=== PATIENT | female | born 1970 | race Caucasian/White ===

== ENCOUNTER → 2017-10-23 11:49 | Outpatient (CLI) | payer OTHER, SELFPAY ==
[2017-10-23 17:09] LABS: Urine N gonorrhoeae NOT DETECTED
[2017-10-23 17:50] LABS: Urine Chlamydia NOT DETECTED
== END ==
PROVIDERS: Visit Provider Physician Assistant
DX: N73.0 Acute parametritis and pelvic cellulitis (principal)
CPT/HCPCS: 87210; 87491; 87591

== ENCOUNTER → 2017-11-21 07:01 | Outpatient (CLI) | payer OTHER, SELFPAY ==
[2017-11-21 09:23] LABS: Alanine Aminotransferase 20 IU/L (9-52); Albumin 4.4 g/dL (3.5-5.0); Albumin Globulin Ratio 1.4 (1.0-2.8); Alkaline Phosphatase 36 U/L (38-126); Aspartate Aminotransferase 26 IU/L (14-36); BUN Creatinine Ratio 16.3 (6-22); Bilirubin Total 0.4 mg/dL (0.2-1.3); Blood Urea Nitrogen 13 mg/dL (7-17); Calcium 9.4 mg/dL (8.4-10.2); Carbon Dioxide 28 mmol/L (22-32); Chloride 105 mmol/L (98-107); Cholesterol 240 mg/dL (140-199); Estimated Glomerular Filt Rate > 60.0 mL/min (>60); Globulin 3.1 g/dL (1.7-4.1); Glucose 86 mg/dL (70-100); HDL Cholesterol 64 mg/dL (40-60); HEMOLYSIS < 15 (0-50); LDL Cholesterol Calculated 142 mg/dL (<100); Potassium 4.4 mmol/L (3.4-5.1); Sodium 143 mmol/L (137-145); Total Protein 7.5 g/dL (6.3-8.2); Triglycerides 171 mg/dL (35-150)
[2017-11-21 10:10] LABS: Thyroid Stimulating Hormone 1.22 uIU/mL (0.47-4.68)
== END ==
PROVIDERS: PCP Physician Assistant; Visit Provider Physician Assistant
DX: E78.2 Mixed hyperlipidemia (principal); Z13.29 Encounter for screening for other suspected endocrine disorder
CPT/HCPCS: 36415; 80053; 80061; 84443

== ENCOUNTER → 2018-01-11 15:07 | Outpatient (CLI) | payer OTHER, SELFPAY ==
--- NOTE | 2018-01-11 15:09 | DI.MG.S_ITS ---
BILATERAL DIGITAL SCREENING MAMMOGRAM 3D/2D WITH CAD: 01/11/2018 CLINICAL: Routine screening. Comparison is made to exams dated: 01/19/2016 mammogram, 12/25/2013 mammogram, and 01/18/2015 mammogram - [facility]. The tissue of both breasts is heterogeneously dense. This may lower the sensitivity of mammography. Current study was also evaluated with a Computer Aided Detection (CAD) system. No significant masses, calcifications, or other findings are seen in either breast. There has been no significant interval change. IMPRESSION: NEGATIVE There is no mammographic evidence of malignancy. A 1 year screening mammogram is recommended. This exam was interpreted at Station ID: [id number]. NOTE: For mammograms, a report in lay terms will be sent to the patient. Approximately 15% of breast malignancies will not be visualized mammographically. In the management of a palpable breast mass, a negative mammogram must not discourage biopsy of a clinically suspicious lesion. Electronically Signed By: Lisa erwin/amara:01/12/2018 10:02:36 letter sent: Normal Exam ACR BI-RADS Category 1: Negative 3341F
== END ==
PROVIDERS: PCP Physician Assistant; Visit Provider Physician Assistant
DX: Z12.31 Encounter for screening mammogram for malignant neoplasm of breast (principal)
CPT/HCPCS: 77063; 77067

== ENCOUNTER → 2018-11-23 08:00 | Outpatient (CLI) | payer OTHER, SELFPAY ==
[2018-11-23 09:31] LABS: Alanine Aminotransferase 20 IU/L (9-52); Albumin 4.3 g/dL (3.5-5.0); Albumin Globulin Ratio 1.4 (1.0-2.8); Alkaline Phosphatase 43 U/L (38-126); Aspartate Aminotransferase 28 IU/L (14-36); BUN Creatinine Ratio 17.1 (6-22); Bilirubin Total 0.5 mg/dL (0.2-1.3); Blood Urea Nitrogen 12 mg/dL (7-17); Calcium 9.1 mg/dL (8.4-10.2); Carbon Dioxide 27 mmol/L (22-32); Chloride 105 mmol/L (98-107); Cholesterol 261 mg/dL (140-199); Estimated Glomerular Filt Rate > 60.0 mL/min (>60); Globulin 3.1 g/dL (1.7-4.1); Glucose 90 mg/dL (70-100); HDL Cholesterol 62 mg/dL (40-60); HEMOLYSIS < 15 (0-50); LDL Cholesterol Calculated 169 mg/dL (<100); Potassium 4.5 mmol/L (3.4-5.1); Sodium 141 mmol/L (137-145); Total Protein 7.4 g/dL (6.3-8.2); Triglycerides 152 mg/dL (35-150)
[2018-11-23 10:01] LABS: Thyroid Stimulating Hormone 0.94 uIU/mL (0.47-4.68)
== END ==
PROVIDERS: PCP Physician Assistant; Visit Provider Physician Assistant
DX: E78.2 Mixed hyperlipidemia (principal); N95.1 Menopausal and female climacteric states
CPT/HCPCS: 36415; 80053; 80061; 84443

== ENCOUNTER → 2019-01-29 15:28 | Outpatient (CLI) | payer OTHER, SELFPAY ==
--- NOTE | 2019-01-29 15:30 | DI.MG.S_ITS ---
BILATERAL DIGITAL SCREENING MAMMOGRAM 3D/2D WITH CAD: 01/29/2019 CLINICAL: Routine screening. Comparison is made to exams dated: 01/11/2018 mammogram - [facility], 01/19/2016 mammogram, and 01/18/2015 mammogram - [facility]. The tissue of both breasts is heterogeneously dense. This may lower the sensitivity of mammography. Current study was also evaluated with a Computer Aided Detection (CAD) system. There is a possible developing 0.8 cm oval focal asymmetry in the left breast at 8 o'clock posterior depth. This is more prominent. No other significant masses, calcifications, or other findings are seen in either breast. IMPRESSION: INCOMPLETE: NEEDS ADDITIONAL IMAGING EVALUATION The possible developing 0.8 cm oval focal asymmetry in the left breast is indeterminate. Additional views with possible ultrasound are recommended. This exam was interpreted at Station ID: [id number]. NOTE: For mammograms, a report in lay terms will be sent to the patient. Approximately 15% of breast malignancies will not be visualized mammographically. In the management of a palpable breast mass, a negative mammogram must not discourage biopsy of a clinically suspicious lesion. Electronically Signed By: Gregory perez/amara:01/29/2019 16:41:20 letter sent: Additional Imaging Needed ACR BI-RADS Category 0: Incomplete 3340F
== END ==
PROVIDERS: PCP Physician Assistant; Visit Provider Physician Assistant
DX: Z12.31 Encounter for screening mammogram for malignant neoplasm of breast (principal)
CPT/HCPCS: 77063; 77067

== ENCOUNTER → 2019-02-20 13:38 | Outpatient (CLI) | payer OTHER, SELFPAY ==
--- NOTE | 2019-02-20 | DI.MG.S_ITS ---
UNILATERAL LEFT DIGITAL DIAGNOSTIC MAMMOGRAM 3D/2D WITH ADDITIONAL VIEWS: 02/20/2019 CLINICAL: Additional evaluation requested from prior study. Comparison is made to exams dated: 01/29/2019 mammogram, 01/11/2018 mammogram - [facility], and 01/19/2016 mammogram - [facility]. The tissue of left breast is heterogeneously dense. This may lower the sensitivity of mammography. Previously identified approximately 0.8 cm oval focal asymmetry in the medial left breast (described as being at 8 o'clock posterior depth on comparison screening mammograms of 01/29/19 but localizes closer to the 9-10 o'clock position posterior depth on diagnostic views performed today 02/20/19) persists with additional views. IMPRESSION: INCOMPLETE: NEEDS ADDITIONAL IMAGING EVALUATION Previously identified approximately 0.8 cm oval focal asymmetry in the medial left breast (described as being at 8 o'clock posterior depth on comparison screening mammograms of 01/29/19 but localizes closer to the 9-10 o'clock position posterior depth on diagnostic views performed today 02/20/19) persists with additional views. A targeted ultrasound is recommended for further evaluation, and will be performed immediately following this exam. This exam was interpreted at Station ID: [id number]. NOTE: For mammograms, a report in lay terms will be sent to the patient. Approximately 15% of breast malignancies will not be visualized mammographically. In the management of a palpable breast mass, a negative mammogram must not discourage biopsy of a clinically suspicious lesion. Electronically Signed By: Chad Self M.D. ecl/:02/20/2019 15:10:12 ACR BI-RADS Category 0: Incomplete 3340F
--- NOTE | 2019-02-20 13:39 | DI.US.S_ITS ---
LIMITED ULTRASOUND OF LEFT BREAST: 02/20/2019 CLINICAL: Additional evaluation requested from prior study. Comparison is made to exams dated: 02/20/2019 mammogram, 01/29/2019 mammogram, 01/11/2018 mammogram - [facility], 01/19/2016 mammogram, 01/18/2015 mammogram, and 12/25/2013 mammogram - [facility]. Color flow ultrasound of the left breast 7-10 o'clock region was performed. West scale images of the real-time examination were reviewed. There is a 0.9 x 0.7 x 0.4 cm oval probable cluster of microcysts located in the left breast at 9:00 position 4-5 cm from the nipple which demonstrates mild posterior acoustic enhancement/increased through transmission and no vascularity on Doppler ultrasound. This may correlate with the findings seen on comparison mammography. IMPRESSION: PROBABLY BENIGN 0.9 x 0.7 x 0.4 cm probable cluster of microcysts located in the left breast at 9:00 position 4-5 cm from the nipple. A follow-up mammogram and an ultrasound in 6 months is recommended to demonstrate stability. The patient is advised to monitor her breasts and to return sooner for re-evaluation should she feel anything grow or change. This exam was interpreted at Station ID: [id number]. Electronically Signed By: Chad Self M.D. ecl/:02/20/2019 17:08:09 letter sent: Followup Recommended Ultrasound BI-RADS: 3 Probably benign
== END ==
PROVIDERS: PCP Physician Assistant; Visit Provider Physician Assistant
DX: R92.8 Other abnormal and inconclusive findings on diagnostic imaging of breast (principal)
CPT/HCPCS: 76642; 77065; G0279

== ENCOUNTER → 2019-03-29 07:49 | Outpatient (CLI) | payer OTHER, SELFPAY ==
[2019-03-29 09:27] LABS: Cholesterol 191 mg/dL (140-199); HDL Cholesterol 61 mg/dL (40-60); LDL Cholesterol Calculated 94 mg/dL (<100); Triglycerides 178 mg/dL (35-150)
== END ==
PROVIDERS: PCP Physician Assistant; Referring Provider Physician Assistant; Visit Provider Physician Assistant
DX: E78.2 Mixed hyperlipidemia (principal)
CPT/HCPCS: 36415; 80061

== ENCOUNTER → 2019-09-11 09:04 | Outpatient (CLI) | payer OTHER, SELFPAY ==
--- NOTE | 2019-09-11 09:05 | DI.US.S_ITS ---
ULTRASOUND OF LEFT BREAST: 09/11/2019 CLINICAL: 6 month follow-up of cysts. Comparison is made to exams dated: 09/11/2019 mammogram, 02/20/2019 ultrasound, 02/20/2019 mammogram, 01/29/2019 mammogram, 01/11/2018 mammogram - [facility], and 01/19/2016 mammogram - [facility]. Ultrasound of the left breast was performed on the area of interest. West scale images of the real-time examination were reviewed. The a cluster of micro cysts in the left breast at 9 o'clock posterior depth is no longer seen. IMPRESSION: PROBABLY BENIGN The previously seen cluster of microcysts is no longer seen. This corroborates the near complete resolution of the focal asymmetry in the same region on today's mammogram. A follow-up mammogram and possible ultrasound in 6 months is recommended to demonstrate stability. This exam was interpreted at Station ID: [id number]. Electronically Signed By: Lisa Sorto M.D. lk/:09/11/2019 10:52:02 letter sent: Followup Recommended Ultrasound BI-RADS: 3 Probably benign
--- NOTE | 2019-09-11 09:05 | DI.MG.S_ITS ---
UNILATERAL LEFT DIGITAL DIAGNOSTIC MAMMOGRAM 3D/2D SHORT-TERM FOLLOW-UP: 09/11/2019 CLINICAL: Patient returns for a 6 month follow up of the left breast. Comparison is made to exams dated: 02/20/2019 mammogram, 01/29/2019 mammogram, and 01/11/2018 mammogram - [facility]. The tissue of left breast is heterogeneously dense. This may lower the sensitivity of mammography. The oval focal asymmetry in the left breast at 7 o'clock posterior depth is markedly decreased in size when compared to the 02/20/19 mammogram. No other significant masses or calcifications are seen in the breast. IMPRESSION: INCOMPLETE: NEEDS ADDITIONAL IMAGING EVALUATION The focal asymmetry in the left breast is indeterminate. An ultrasound is recommended. This exam was interpreted at Station ID: [id number]. NOTE: For mammograms, a report in lay terms will be sent to the patient. Approximately 15% of breast malignancies will not be visualized mammographically. In the management of a palpable breast mass, a negative mammogram must not discourage biopsy of a clinically suspicious lesion. Electronically Signed By: Lisa Sorto M.D. lk/:09/11/2019 10:18:41 ACR BI-RADS Category 0: Incomplete 3340F
== END ==
PROVIDERS: PCP Family Medicine; Referring Provider Family Medicine; Visit Provider Family Medicine
DX: R92.8 Other abnormal and inconclusive findings on diagnostic imaging of breast (principal); N64.89 Other specified disorders of breast
CPT/HCPCS: 76642; 77065; G0279

== ENCOUNTER → 2019-12-10 08:52 | Outpatient (CLI) | payer OTHER, SELFPAY ==
--- NOTE | 2019-12-10 08:53 | DI.RAD.S_ITS ---
PROCEDURE: XR HAND RT MIN 3V INDICATIONS: pain TECHNIQUE: 3 views of the hand(s) acquired. COMPARISON: None. FINDINGS: Bones: No acute fractures or dislocations. Chronic soft tissue calcification noted over the distal tip of the ulnar styloid process. This may represent sequela of remote trauma to the TFCC. Carpal bones are normally aligned. No suspicious bony lesions. No osseous erosions. No periarticular osteopenia. Minimal triscaphe degenerative change. Soft tissues: No suspicious soft tissue calcifications. IMPRESSION: Right hand without acute fracture. Minimal triscaphe joint osteoarthrosis. Dictated by: Gregory Pritchard M.D. on 12/10/2019 at 10:10 Approved by: Gregory Pritchard M.D. on 12/10/2019 at 10:19
--- NOTE | 2019-12-10 08:53 | DI.RAD.S_ITS ---
PROCEDURE: XR HAND LT MIN 3V INDICATIONS: pain TECHNIQUE: 3 views of the hand(s) acquired. COMPARISON: None. FINDINGS: Bones: No fractures or dislocations. Carpal bones are normally aligned. No suspicious bony lesions. No osseous erosions. No periarticular osteopenia. Soft tissues: No suspicious soft tissue calcifications. Chronic appearing soft tissue calcification overlying the distal ulnar styloid process possibly related to sequela of remote injury of the TFCC. IMPRESSION: Left hand without acute radiographic abnormalities or significant degenerative change. Dictated by: Gregory Pritchard M.D. on 12/10/2019 at 10:08 Approved by: Gregory Pritchard M.D. on 12/10/2019 at 10:10
== END ==
PROVIDERS: PCP Family Medicine; Referring Provider Family Medicine; Visit Provider Family Medicine
DX: M25.541 Pain in joints of right hand (principal); M25.542 Pain in joints of left hand
CPT/HCPCS: 73130

== ENCOUNTER → 2019-12-13 08:07 | Outpatient (CLI) | payer OTHER, SELFPAY ==
[2019-12-13 08:39] LABS: Bacteria Urine None Seen; RBC Urine None Seen (0-5/HPF); WBC Urine None Seen (0-5/HPF)
[2019-12-13 08:57] LABS: Appearance Urine UA CLEAR; Bilirubin Urine UA NEGATIVE (NEGATIVE); Color Urine UA YELLOW; Glucose Urine UA NEGATIVE (Negative); Ketones Urine UA NEGATIVE (NEGATIVE); Leukocyte Esterase Urine UA NEGATIVE (NEGATIVE); Nitrite Urine UA NEGATIVE (Negative); Occult Blood Urine UA TRACE-INTACT (Negative); Protein Urine UA NEGATIVE (Negative); Specific Gravity Urine UA 1.015 (1.000-1.035); Urobilinogen Urine UA 0.2 E.U./dL (0.2)
[2019-12-13 08:58] LABS: Add Manual Diff / Slide Review NO; Basophils Absolute Auto 0 /uL (0-100); Basophils Percent Auto 0.7 % (0-2); Eosinophils Absolute Auto 100 /uL (0-450); Eosinophils Percent Auto 1.3 % (2-4); Hemoglobin 13.4 g/dL (12.0-16.0); Lymphocytes Absolute Auto 1400 /uL (1100-4500); Mean Corpuscular HGB Conc 33.4 % (30-36); Mean Corpuscular Hemoglobin 30.8 PG (26-34); Mean Corpuscular Volume 92.2 fL (80-100); Monocytes Absolute Auto 300 /uL (0-900); Neutrophils Absolute Auto 3300 /uL (1500-7000); Platelet Count 339 X10^3/uL (150-400); Red Blood Cell Count 4.34 X10^6/uL (4.0-5.2)
[2019-12-13 09:09] LABS: BUN Creatinine Ratio 17.6 (6-22); Blood Urea Nitrogen 12 mg/dL (7-17); Carbon Dioxide 28 mmol/L (22-32); Chloride 105 mmol/L (98-107); Cholesterol 205 mg/dL (140-199); Estimated Glomerular Filt Rate > 60.0 mL/min (>60); Glucose 91 mg/dL (70-100); HDL Cholesterol 73 mg/dL (40-60); HEMOLYSIS < 15 (0-50); LDL Cholesterol Calculated 103 mg/dL (<100); Potassium 4.2 mmol/L (3.4-5.1); Sodium 138 mmol/L (137-145); Triglycerides 147 mg/dL (35-150); Uric Acid 3.7 mg/dL (2.5-6.2)
[2019-12-13 09:17] LABS: Rheumatoid Factor < 8.6 IU/mL (<12.0)
[2019-12-13 10:20] LABS: pH Urine UA 7.5 (4.5-8.0)
[2019-12-13 10:21] LABS: Culture Indicated Urine Cult Not Indicated; Urine Comments Microscopic Normal
[2019-12-15 18:34] LABS: ANA Screen, IFA Negative (.)
[2019-12-16 22:50] LABS: CCP Antibodies IgG/IgA 4 units (0-19)
== END ==
PROVIDERS: PCP Family Medicine; Referring Provider Family Medicine; Visit Provider Family Medicine
DX: E78.2 Mixed hyperlipidemia (principal); M25.541 Pain in joints of right hand; M25.542 Pain in joints of left hand
CPT/HCPCS: 36415; 80048; 80061; 81001; 84550; 85025; 86038; 86200; 86430

== ENCOUNTER → 2020-03-26 12:41 | Outpatient (CLI) | payer OTHER, SELFPAY ==
--- NOTE | 2020-03-26 12:42 | DI.MG.S_ITS ---
BILATERAL DIGITAL DIAGNOSTIC MAMMOGRAM 3D/2D SHORT-TERM FOLLOW-UP: 03/26/2020 CLINICAL: Short term follow up of the left breast, due for bilateral imaging. Comparison is made to exams dated: 09/11/2019 mammogram, 02/20/2019 mammogram, and 01/29/2019 mammogram - . The tissue of both breasts is heterogeneously dense. This may lower the sensitivity of mammography. The benign 0.8 cm focal asymmetry in the left breast at 7 o'clock posterior depth is no longer seen. No other significant masses, calcifications, or other findings are seen in either breast. IMPRESSION: BENIGN There is no mammographic evidence of malignancy. Return to annual mammogram screening schedule is recommended. This exam was interpreted at Station ID: [id number]. NOTE: For mammograms, a report in lay terms will be sent to the patient. Approximately 15% of breast malignancies will not be visualized mammographically. In the management of a palpable breast mass, a negative mammogram must not discourage biopsy of a clinically suspicious lesion. Electronically Signed By: Benji Mccall acr/:03/26/2020 14:01:46 letter sent: Normal Exam ACR BI-RADS Category 2: Benign Finding(s) 3342F
== END ==
PROVIDERS: PCP Family Medicine; Referring Provider Family Medicine; Visit Provider Family Medicine
DX: R92.8 Other abnormal and inconclusive findings on diagnostic imaging of breast (principal)
CPT/HCPCS: 77066; G0279

== ENCOUNTER → 2020-09-01 13:00 | Outpatient (CLI) | payer OTHER, SELFPAY | PROVIDERS: PCP Family Medicine; Visit Provider Physician Assistant | DX: N89.8 Other specified noninflammatory disorders of vagina (principal) | CPT/HCPCS: 87210 ==

== ENCOUNTER → 2021-03-28 10:05 | Outpatient (CLI) | payer OTHER, SELFPAY ==
--- NOTE | 2021-03-28 | DI.MG.S_ITS ---
BILATERAL DIGITAL SCREENING MAMMOGRAM 3D/2D WITH CAD: 03/28/2021 CLINICAL: Routine screening. Comparison is made to exams dated: 03/26/2020 mammogram, 01/29/2019 mammogram, 01/11/2018 mammogram, 09/11/2019 mammogram, and 02/20/2019 mammogram - [facility]. The tissue of both breasts is heterogeneously dense. This may lower the sensitivity of mammography. Current study was also evaluated with a Computer Aided Detection (CAD) system. No significant masses, calcifications, or other findings are seen in either breast. There has been no significant interval change. IMPRESSION: NEGATIVE There is no mammographic evidence of malignancy. A 1 year screening mammogram is recommended. This exam was interpreted at Station ID: [id number]. NOTE: For mammograms, a report in lay terms will be sent to the patient. Approximately 15% of breast malignancies will not be visualized mammographically. In the management of a palpable breast mass, a negative mammogram must not discourage biopsy of a clinically suspicious lesion. Electronically Signed By: Eduard mendes/aamra:03/28/2021 10:27:42 letter sent: Normal Exam ACR BI-RADS Category 1: Negative 3341F
== END ==
PROVIDERS: PCP Family Medicine; Referring Provider Family Medicine; Visit Provider Family Medicine
DX: Z12.31 Encounter for screening mammogram for malignant neoplasm of breast (principal)
CPT/HCPCS: 77063; 77067

== ENCOUNTER → 2021-05-09 08:59 | Outpatient (CLI) | payer OTHER, SELFPAY ==
[2021-05-09 11:48] LABS: COVID19 -Nasal RAPID Negative (Negative)
== END ==
PROVIDERS: PCP Family Medicine; Visit Provider Surgery
DX: Z01.812 Encounter for preprocedural laboratory examination (principal); Z20.822 Contact with and (suspected) exposure to COVID-19
CPT/HCPCS: 87635; C9803

== ENCOUNTER 2021-05-10 07:17 | Day surgery (SDC) | payer OTHER, SELFPAY ==
[2021-05-10 07:45] VITALS: BP 135/85; PULSE 85; RESP 18; TEMP 36.3; O2SAT 99; BMI 30.7
[2021-05-10] MEDS: LACTATED RINGERS 1,000 ML 200 ML IV (07:55)
--- NOTE | 2021-05-10 08:33 | P.HP_ITS ---
History of Present Illness History of Present Illness Date Patient Seen: 05/10/21 Time Patient Seen: 08:33 Chief complaint: SDC Narrative: THE PATIENT PRESENTS FOR COLORECTAL SREENING. THEY HAVE NEVER HAD ANY PREVIOUS EXAMINATION FOR SUCH. NO PERSONAL OR FAMILY HISTORY OF COLON CANCER. ON FURTHER HISTORY DENIES ANY RECENT GASTROINTESTINAL SYMPTOMS. NO NAUSEA, VOMITING, ABDOMINAL PAIN, LOSS OF APPETITE, UNEXPLAINED WEIGHT LOSS, CHANGE IN BOWEL HABITS, DIARRHEA, CONSTIPATION, MELENA, HEMATOCHEZIA, OR BRIGHT RED BLOOD PER RECTUM. Patient History Medical History Bacterial vaginosis Cardiac arrhythmia (2015) Chickenpox (1979) Chronic right hip pain Joint pain in fingers of both hands Plantar fasciitis of left foot Vertigo (2003) Weight gain finding Surgical History No history of previous surgery Family & Social History Family History Brother Age: 46 High cholesterol Father Age: 73 Heart disease High cholesterol Grandfather No problems noted. Grandmother No problems noted. Grandfather No problems noted. Grandmother No problems noted. Mother No problems noted. Social History: household members spouse Tobacco & Substance use: Smoking Status Never smoker alcohol intake current alcohol intake frequency 3 or more drinks per day Substance Use Type does not use Meds Home Medications and Allergies Home Medications Medication Instructions Recorded Confirmed Type multivitamin (Multiple Vitamins) 1 tab PO QDAY #0 02/14/17 05/10/21 History Calcium Gummies See Rx Instructions .ROUTE .COMPLEX 11/14/17 05/10/21 History Vitamin E See Rx Instructions .ROUTE .COMPLEX 10/21/18 09/23/20 History atorvastatin 20 mg tablet 20 mg PO BEDTIME #90 tab 07/13/20 05/10/21 Rx omeprazole 40 mg capsule,delayed 40 mg PO DAILY PRN #90 cap 07/13/20 05/10/21 Rx release Allergies Allergy/AdvReac Type Severity Reaction Status Date / Time No Known Allergies Allergy Uncoded 09/23/20 09:49 Exam Vital Signs (past 8 hours): - 05/10/21 07:45 Temperature 97.4 F L Pulse Rate 85 Respiratory Rate 18 Blood Pressure 135/85 Pulse Oximetry 99 Oxygen Delivery Method Room Air Narrative Exam Narrative: GENERAL: ADULT FEMALE IN NO APPARENT DISTRESS HEENT: NO SCLERAL ICTERUS CV: REGULAR RATE, NO PERIPHERAL EDEMA LUNGS: NO INCREASED WORK OF BREATHING. PATIENT SPEAKS IN FULL SENTENCES WITHOUT OXYGEN SUPPORT. ABDOMEN: SOFT, NON-TENDER, NON-DISTENDED NEURO: NONFOCAL, NORMAL STRENGTH THROUGHOUT, NORMAL GAIT. SKIN: WARM AND DRY Assessment & Plan Assessment & Plan narrative: THE PATIENT REQUIRES COLORECTAL SCREENING AND COLONOSCOPY IS RECOMMENDED. TECH NICAL DETAILS WERE DISCUSSED. RISKS, BENEFITS, ALTERNATIVES EXPLAINED. RISKS INCLUDING BUT NOT LIMITED TO MYOCARDIAL INFARCTION, ASPIRATION, BLEEDING, PAIN, MISSED LESION, INCOMPLETE EXAMINATION, NEED FOR FURTHER RADIOGRAPHIC STUDIES, COLONIC PERFORATION, AND NEED FOR MAJOR ABDOMINAL SURGERY WERE DISCUSSED. ALL QUESTIONS WERE ANSWERED TO THEIR SATISFACTION, AND THEY ARE IN AGREEMENT WITH THIS PLAN. Time Spent With Patient Critical Care time: I spent a total of [] minutes of critical care time on this patient's care to day; this time is exclusive of procedural time.
[2021-05-10] MEDS: fentaNYL 250 MCG/5 ML INJ IV (08:55)
[2021-05-10] MEDS: MIDAZOLAM 5 MG/5 ML VIAL IV (08:56)
[2021-05-10] MEDS: ONDANSETRON 4 MG/2 ML INJ IV (08:56)
--- NOTE | 2021-05-10 08:59 | P.OP.COLON_ITS ---
Operative Date/Time/Diagnoses Date of procedure: 05/10/21 Time of procedure: 08:59 Pre-op diagnosis: screening Post-op diagnosis: same Procedure & Clinicians Study performed: Colonoscopy Same procedure as scheduled: Yes Indications: Screening Surgeon: Jeffry Woodruff Procedure Notes Procedure in detail: Medications: Conscious sedation using 5mg IV midazolam and 125mcg IV of fentanyl The history and physical was performed/updated and the patient is ASA class is 1. The procedure was discussed in detail with the patient. Potential risks complications including infection, bleeding, missed diagnosis, perforation, need for surgery, and were explained. Their questions were answered and informed consent was obtained. Patient was brought to the procedure room and placed standard monitoring equipment. The patient's vital signs were monitored continuously throughout the entire procedure. Prior to starting time-out was performed. The patient was placed in the left lateral recumbent position. Procedural sedation was adminis tered. Examination began with a thorough inspection of the perianal area there was no evidence of fissures, fistulae, external hemorrhoids or cutaneous malignancy. The colonoscopy scope was then placed into the anal canal and was advanced to the cecum, which was identified by the ileocecal valve, the appendiceal orifice and the confluence of the taenia. The scope was then slowly withdrawn examining colon thoroughly in all directions, irrigating it of any residual stool. FINDINGS 1. No masses or polyps 2. Normal healthy colonic tissue 3. Grade 1 internal The patient tolerated the procedure well. They will be discharged once criteria are met. The prep was of good/excellent quality. The withdrawl time was 9 minutes. The sedation time was 20 minutes. Specimen(s): none sent Complications: none Impression: Normal colonoscopy Post-procedure Recommendations: Colonoscopy in 10 years and High fiber diet Disposition: same day surgery
[2021-05-10 09:04] VITALS: BP 87/51; PULSE 63; RESP 12; TEMP 35.8; O2SAT 92
[2021-05-10 09:06] VITALS: BP 93/59; PULSE 66; RESP 14; O2SAT 92
[2021-05-10 09:12] VITALS: BP 94/66; PULSE 64; RESP 12; O2SAT 94
[2021-05-10 09:23] VITALS: BP 99/64; PULSE 65; RESP 15; TEMP 36; O2SAT 94
--- NOTE | 2021-05-10 09:25 | SUR.PHASEI ---
discharge instructions reviewed with pt and she verbalized understanding.
[2021-05-10 09:26] VITALS: BP 116/91; PULSE 70; RESP 15; O2SAT 99
== END 2021-05-10 09:33 | disposition home or self-care (01) ==
PROVIDERS: PCP Family Medicine; Referring Provider Surgery; Visit Provider Surgery
PROC: 0DJD8ZZ Inspection of Lower Intestinal Tract, Via Natural or Artificial Opening Endoscopic (ICD-10-PCS; CPT 45378; principal; 2021-05-10 08:30)
DX: Z12.11 Encounter for screening for malignant neoplasm of colon (principal); K64.0 First degree hemorrhoids
CPT/HCPCS: 45378; 99152; J2250; J2405; J3010

== ENCOUNTER → 2021-05-25 14:39 | Outpatient (CLI) | payer OTHER, SELFPAY | PROVIDERS: PCP Family Medicine; Visit Provider Nurse Practitioner Family | DX: B96.89 Other specified bacterial agents as the cause of diseases classified elsewhere (principal); N76.0 Acute vaginitis | CPT/HCPCS: 87220 ==

== ENCOUNTER → 2021-05-26 06:47 | Outpatient (CLI) | payer OTHER, SELFPAY ==
[2021-05-26 07:55] LABS: Appearance Urine UA CLEAR; Bilirubin Urine UA NEGATIVE (NEGATIVE); Color Urine UA YELLOW; Glucose Urine UA NEGATIVE (Negative); Ketones Urine UA NEGATIVE (NEGATIVE); Leukocyte Esterase Urine UA NEGATIVE (NEGATIVE); Nitrite Urine UA NEGATIVE (Negative); Occult Blood Urine UA TRACE-INTACT (Negative); Protein Urine UA NEGATIVE (Negative); Specific Gravity Urine UA <=1.005 (1.000-1.035); Urobilinogen Urine UA 0.2 E.U./dL (0.2)
[2021-05-26 08:13] LABS: Amorphous Sediment Urine 1+; Bacteria Urine Few (2-10); Culture Indicated Urine Specimen Cultured; RBC Urine 0-1/HPF (0-5/HPF); Squamous Epithelial Cell Urine 0-1 /HPF (0-5/HPF); WBC Urine 0-1/HPF (0-5/HPF)
[2021-05-26 08:28] LABS: Add Manual Diff / Slide Review NO; Basophils Absolute Auto 100 /uL (0-100); Basophils Percent Auto 0.9 % (0-2); Eosinophils Absolute Auto 100 /uL (0-450); Hematocrit 41.9 % (36-46); Hemoglobin 14.1 g/dL (12.0-16.0); Lymphocytes Absolute Auto 1800 /uL (1100-4500); Lymphocytes Percent Auto 24.6 % (25-40); Mean Corpuscular HGB Conc 33.6 % (30-36); Mean Corpuscular Hemoglobin 30.6 PG (26-34); Mean Corpuscular Volume 91.3 fL (80-100); Monocytes Absolute Auto 400 /uL (0-900); Monocytes Percent Auto 4.9 % (3-14); Neutrophils Absolute Auto 4900 /uL (1500-7000); Neutrophils Percent Auto 67.6 % (50-75); Platelet Count 365 X10^3/uL (150-400); Red Cell Distribution Width 13.5 % (11.6-14.8); White Blood Cell Count 7.2 X10^3/uL (4.5-11.0)
[2021-05-26 08:40] LABS: BUN Creatinine Ratio 12.7 (6-22); Blood Urea Nitrogen 10 mg/dL (7-17); Calcium 9.4 mg/dL (8.4-10.2); Carbon Dioxide 28 mmol/L (22-32); Chloride 103 mmol/L (98-107); Cholesterol 257 mg/dL (140-199); Estimated Glomerular Filt Rate > 60.0 mL/min (>60); Glucose 96 mg/dL (70-100); HDL Cholesterol 67 mg/dL (40-60); HEMOLYSIS < 15 (0-50); LDL Cholesterol Calculated 139 mg/dL (<100); Potassium 3.7 mmol/L (3.4-5.1); Sodium 138 mmol/L (137-145); Triglycerides 254 mg/dL (35-150)
== END ==
PROVIDERS: PCP Family Medicine; Referring Provider Nurse Practitioner Family; Visit Provider Nurse Practitioner Family
DX: M54.50 Low back pain, unspecified (principal); E78.2 Mixed hyperlipidemia
CPT/HCPCS: 36415; 80048; 80061; 81001; 85025; 87086

== ENCOUNTER → 2021-05-27 13:34 | Outpatient (CLI) | payer OTHER, SELFPAY | PROVIDERS: PCP Family Medicine; Referring Provider Nurse Practitioner Family; Visit Provider Nurse Practitioner Family | DX: N76.0 Acute vaginitis (principal); B96.89 Other specified bacterial agents as the cause of diseases classified elsewhere | CPT/HCPCS: 87210 ==

== ENCOUNTER → 2021-07-06 14:03 | Outpatient (CLI) | payer OTHER, SELFPAY ==
--- NOTE | 2021-07-06 14:05 | DI.US.S_ITS ---
PROCEDURE: US RENAL COMPLETE INDICATIONS: hematuria TECHNIQUE: Real-time scanning was performed of the kidneys and bladder, with image documentation. COMPARISON: None. FINDINGS: Kidneys: Kidneys are normal in size. Right kidney measures 10.9 cm long; left kidney measures 10.7 cm long. Right renal cortical thickness is 1.4 cm; left renal cortical thickness is 1.7 cm. Renal cortical echotexture is normal. No hydronephrosis. There is an 8 mm focus of increased echogenicity within the left kidney. No suspicious solid mass lesions. Bladder: Pre-void bladder volume is not measured secondary to poor distention. Post-void residual is not measured secondary to poor distention. Pre-void images demonstrate no intraluminal masses or stones. On pre-void images, neither ureteral jets are noted with color Doppler interrogation. (Of note, ureteral jets may not be detectable in up to 25% of cases due to insufficient differences in specific gravity between ureteral and bladder urine). Miscellaneous: No free pelvic fluid. IMPRESSION: Nonobstructing left renal calculus. Limited evaluation of the bladder secondary to incomplete distention. Dictated by: Leyla Santos M.D. on 07/07/2021 at 16:08 Approved by: Leyla Santos M.D. on 07/07/2021 at 16:09
== END ==
PROVIDERS: PCP Family Medicine; Referring Provider Nurse Practitioner Family; Visit Provider Nurse Practitioner Family
DX: R31.9 Hematuria, unspecified (principal); N20.0 Calculus of kidney
CPT/HCPCS: 76700; 76770

== ENCOUNTER → 2021-08-11 07:25 | Outpatient (CLI) | payer OTHER, SELFPAY ==
[2021-08-11 08:09] LABS: Cholesterol 202 mg/dL (140-199); HDL Cholesterol 74 mg/dL (40-60); LDL Cholesterol Calculated 96 mg/dL (<100); Triglycerides 161 mg/dL (35-150)
== END ==
PROVIDERS: PCP Family Medicine; Referring Provider Family Medicine; Visit Provider Family Medicine
DX: E78.2 Mixed hyperlipidemia (principal)
CPT/HCPCS: 36415; 80061

== ENCOUNTER → 2022-04-24 12:22 | Outpatient (CLI) | payer OTHER, SELFPAY ==
--- NOTE | 2022-04-24 12:24 | DI.MG.S_ITS ---
BILATERAL DIGITAL SCREENING MAMMOGRAM 3D/2D WITH CAD: 04/24/2022 CLINICAL: Routine screening. Comparison is made to exams dated: 03/28/2021 mammogram, 03/26/2020 mammogram, 09/11/2019 mammogram, and 01/29/2019 mammogram - [facility]. Both breasts are heterogeneously dense, which may obscure small masses (category c / 51-75% glandular tissue). Current study was also evaluated with a Computer Aided Detection (CAD) system. No significant masses, calcifications, or other findings are seen in either breast. There has been no significant interval change. IMPRESSION: NEGATIVE There is no mammographic evidence of malignancy. A 1 year screening mammogram is recommended. Based on the Tyrer Cuzick model (a risk assessment model) the patient's lifetime risk is 12.9% and her 10 year risk is 3.4%. According to the ACR, ACS, and NCCN guidelines, an annual breast MRI exam along with mammogram is recommended if the patient's lifetime risk is 20% or greater. This exam was interpreted at Station ID: [id number]. NOTE: For mammograms, a report in lay terms will be sent to the patient. Approximately 15% of breast malignancies will not be visualized mammographically. In the management of a palpable breast mass, a negative mammogram must not discourage biopsy of a clinically suspicious lesion. Electronically Signed By: Eduard mendes/amara:04/24/2022 13:49:34 letter sent: Normal Exam ACR BI-RADS Category 1: Negative 3341F
== END ==
PROVIDERS: PCP Family Medicine; Referring Provider Family Medicine; Visit Provider Family Medicine
DX: Z12.31 Encounter for screening mammogram for malignant neoplasm of breast (principal)
CPT/HCPCS: 77063; 77067

== ENCOUNTER → 2022-05-05 09:44 | Outpatient (CLI) | payer OTHER, SELFPAY ==
--- NOTE | 2022-05-05 09:44 | DI.US.S_ITS ---
PROCEDURE: US PERIPH VENOUS LOW EXTREM LT INDICATIONS: right leg pain TECHNIQUE: Real-time imaging, as well as color and pulse Doppler interrogation, were performed of the lower extremity deep veins from the inguinal ligament to the popliteal fossa. COMPARISON: None. FINDINGS: The common femoral, femoral and popliteal veins are normally compressible, and free of intraluminal thrombus. Color and pulse Doppler demonstrate normal phasic intraluminal flow. There is normal augmentation response to distal compression maneuver. IMPRESSION: No left lower extremity DVT. Dictated by: Panfilo Lowe M.D. on 05/05/2022 at 10:53 Approved by: Panfilo Lowe M.D. on 05/05/2022 at 10:57
== END ==
PROVIDERS: PCP Family Medicine; Referring Provider Nurse Practitioner Family; Visit Provider Nurse Practitioner Family
DX: M79.605 Pain in left leg (principal)
CPT/HCPCS: 93971

== ENCOUNTER → 2022-05-06 10:32 | Outpatient (CLI) | payer OTHER, SELFPAY ==
--- NOTE | 2022-05-06 10:33 | DI.CT.S_ITS ---
PROCEDURE: CT KIDNEY URETER BLADDER (KUB) INDICATIONS: Flank pain and kidney stone TECHNIQUE: Axial sections were acquired from the lung bases to the pubic symphysis. Coronal and sagittal reformats were performed. For radiation dose reduction, the following was used: automated exposure control, adjustment of mA and/or kV according to patient size. COMPARISON: None. FINDINGS: Image quality: Excellent. Lung bases: Unremarkable. Heart: No significant findings. URINARY: Right Kidney: No stones or hydronephrosis. Right Ureter: No hydroureter. Left Kidney: No stones or hydronephrosis. Left Ureter: No hydroureter. Bladder: Normal wall thickness. No stones. ABDOMEN: Liver: Unremarkable. Gallbladder: Unremarkable. Biliary ducts: Unremarkable. Pancreas: Unremarkable. Spleen: Unremarkable. Adrenal Glands: Unremarkable. Stomach and Bowel: Stomach, small bowel loops, and colon are unremarkable. Peritoneum: No abnormal intraperitoneal fluid. No free air. Ventral Wall: No hernia. Abdominal Nodes: No enlarged retroperitoneal or mesenteric lymph nodes. Vessels: Aorta and inferior vena cava are normal in size. PELVIS: Pelvic Organs: Unremarkable. Pelvic Nodes: Unremarkable. Miscellaneous: No inguinal hernias are seen. Bones: Unremarkable. IMPRESSION: The laterality of flank pain is not identified by the physician or the ct scan technologist. There is what likely is a small phlebolith noted at the far distal ureteral region on the right measuring only 1 mm. The exact course of the distal right ureter in this area is indeterminate. Please correlate clinically-no hydronephrosis on the right is associated. Dictated by: Marcus Frank M.D. on 05/06/2022 at 20:39 Approved by: Marcus Frank M.D. on 05/06/2022 at 20:40
== END ==
PROVIDERS: PCP Family Medicine; Referring Provider Family Medicine; Visit Provider Family Medicine
DX: N20.0 Calculus of kidney (principal); R10.9 Unspecified abdominal pain
CPT/HCPCS: 74176

== ENCOUNTER → 2023-05-15 11:41 | Outpatient (CLI) | payer OTHER, SELFPAY ==
--- NOTE | 2023-05-15 11:42 | DI.MG.S_ITS ---
BILATERAL DIGITAL SCREENING MAMMOGRAM 3D/2D WITH CAD: 05/15/2023 CLINICAL: Routine screening. Comparison is made to exams dated: 04/24/2022 mammogram, 03/28/2021 mammogram, and 03/26/2020 mammogram - [facility]. There are scattered areas of fibroglandular density in both breasts (category b / 25%-50% glandular tissue). Current study was also evaluated with a Computer Aided Detection (CAD) system. No significant masses, calcifications, or other findings are seen in either breast. There has been no significant interval change. IMPRESSION: NEGATIVE There is no mammographic evidence of malignancy. A 1 year screening mammogram is recommended. Based on the Tyrer Cuzick model (a risk assessment model) the patient's lifetime risk is 8.6% and her 10 year risk is 2.3%. According to the ACR, ACS, and NCCN guidelines, an annual breast MRI exam along with mammogram is recommended if the patient's lifetime risk is 20% or greater. This exam was interpreted at Station ID: [id number]. NOTE: For mammograms, a report in lay terms will be sent to the patient. Approximately 15% of breast malignancies will not be visualized mammographically. In the management of a palpable breast mass, a negative mammogram must not discourage biopsy of a clinically suspicious lesion. Electronically Signed By: Eduard mendes/amara:05/15/2023 16:32:57 letter sent: Normal Exam ACR BI-RADS Category 1: Negative [id number]
== END ==
LOC: MAMMO 11:42
PROVIDERS: PCP Family Medicine; Referring Provider Family Medicine; Visit Provider Family Medicine
DX: Z12.31 Encounter for screening mammogram for malignant neoplasm of breast (principal); R92.323 Mammographic fibroglandular density, bilateral breasts
CPT/HCPCS: 77063; 77067

== ENCOUNTER → 2023-05-26 07:47 | Outpatient (CLI) | payer OTHER, SELFPAY ==
[2023-05-26 09:19] LABS: Cholesterol 275 mg/dL (140-199); HDL Cholesterol 57 mg/dL (40-60); LDL Cholesterol Calculated 180 mg/dL (<100); Triglycerides 191 mg/dL (35-150)
== END ==
LOC: LAB 07:48
PROVIDERS: PCP Family Medicine; Referring Provider Family Medicine; Visit Provider Family Medicine
DX: E78.2 Mixed hyperlipidemia (principal)
CPT/HCPCS: 36415; 80061

== ENCOUNTER 2023-07-07 13:27 | Emergency (ER) | payer OTHER, SELFPAY ==
[2023-07-07 13:35] VITALS: BP 153/102; PULSE 100; RESP 18; TEMP 36.9; O2SAT 100; BMI 29.8
--- NOTE | 2023-07-07 13:38 | DI.RAD.S_ITS ---
PROCEDURE: XR FOOT RT MIN 3V INDICATIONS: fall/pain/felt a pop TECHNIQUE: 3 views of the foot were acquired. COMPARISON: None. FINDINGS: Bones: No fractures or dislocations. No suspicious bony lesions. Small calcaneal spur. Soft tissues: No tibiotalar joint effusion. Achilles tendon appears normal. IMPRESSION: No visualized acute fracture or dislocation. However, if clinical concern and/or pain persist, short interval imaging followup in 7-10 days is recommended, as occult injury cannot be definitively excluded. Dictated by: Leyla Santos M.D. on 07/07/2023 at 14:12 Approved by: Leyla Santos M.D. on 07/07/2023 at 14:13
--- NOTE | 2023-07-07 13:38 | DI.RAD.S_ITS ---
PROCEDURE: XR ANKLE RT MIN 3V INDICATIONS: fall/pain/felt a pop TECHNIQUE: 3 views of the ankle were acquired. COMPARISON: None. FINDINGS: Bones: No fractures or dislocations. Ankle mortise is normally aligned. No suspicious bony lesions. Small calcaneal spur. Soft tissues: No tibiotalar joint effusion. Achilles tendon appears normal. IMPRESSION: No visualized acute fracture or dislocation. However, if clinical concern and/or pain persist, short interval imaging followup in 7-10 days is recommended, as occult injury cannot be definitively excluded. Dictated by: Leyla Santos M.D. on 07/07/2023 at 14:12 Approved by: Leyla Santos M.D. on 07/07/2023 at 14:12
--- NOTE | 2023-07-07 15:43 | ED_ITS ---
HPI - Extremity Injury (Lower) General Chief Complaint: Extremity Injury, Lower Stated Complaint: Fall down stairs, rt foot injury Time Seen by Provider: 07/07/23 15:25 Source: patient Mode of arrival: Wheelchair History of Present Illness HPI Narrative: 53-year-old female nonsmoker with noncontributory medical history presents with her for evaluation of right foot and ankle injury prior to arrival. She was [place] local [place] and walking down steps in slipped down the bottom 2 steps and inverted her right ankle. She felt and heard a pop over her lateral ankle and now has pain with flexing her foot and also with weight-bearing. She denies any pain in her knee or her hip. She is otherwise well and free of complaint. She denies numbness or tingling Related Data Home Medications Medication Instructions Recorded Confirmed multivitamin (Multiple Vitamins 1 tab PO QDAY ##0 02/14/17 07/26/23 tablet) Calcium Gummies See Rx Instructions .Route .COMPLEX 11/14/17 07/26/23 omeprazole 20 mg capsule,delayed 20 mg PO DAILY 05/30/22 07/26/23 release Previous Rx's Medication Instructions Recorded pravastatin 20 mg tablet 20 mg PO DAILY #90 tabs 06/15/23 progesterone micronized 100 mg 100 mg PO QAM #30 caps 06/18/23 capsule chlorthalidone 25 mg tablet 25 mg PO DAILY #30 tabs 07/12/23 estradiol 10 mcg vaginal tablet 10 mcg vaginal 2XW #24 tabs 07/12/23 (Vagifem) losartan 25 mg tablet 25 mg PO DAILY #90 tabs 08/03/23 Allergies Allergy/AdvReac Type Severity Reaction Status Date / Time No Known Allergies Allergy Uncoded 07/26/23 16:22 Review of Systems Review of Systems Narrative: GENERAL: Denies chills, fatigue, malaise, fever, sweats. HEENT: Denies sinus pain, ear pain, sore throat, difficulty swallowing, dizziness. RESPIRATORY: Denies dyspnea, cough, wheezing, hemoptysis, sputum. CARDIOVASCULAR: Denies chest pain, palpitations, orthopnea, edema, GASTROINTESTINAL: Denies nausea, vomiting, abdominal pain, diarrhea, constipation, melena. : Denies dysuria, frequency, incontinence, hematuria, urinary retention. MUSCULOSKELETAL: See HPI SKIN: Denies rash, skin lesions, or other NEUROLOGIC: Denies weakness, headache, numbness, change in speech, confusion, seizures, incoordination. PSYCHIATRIC: No concerning psychosocial issues. 12 point review of systems is negative except for those stated above Patient History Medical History Well woman exam with routine gynecological exam Stress incontinence Acute pain of right knee Seborrheic keratoses, inflamed Chronic left hip pain Sacral region somatic dysfunction Segmental and somatic dysfunction of pelvic region Lumbar region somatic dysfunction Chronic left-sided low back pain with left-sided sciatica Plantar fasciitis of right foot Left nephrolithiasis Flank pain Bacterial vaginosis Weight gain finding Chronic right hip pain Joint pain in fingers of both hands Plantar fasciitis of left foot Chickenpox (1979) Vertigo (2003) Cardiac arrhythmia (2016) Surgical History No history of previous surgery Family History Brother Age: 49 High cholesterol Father Age: 76 Heart disease High cholesterol Grandfather No problems noted. Grandmother No problems noted. Grandfather No problems noted. Grandmother No problems noted. Mother No problems noted. Social History household members: spouse Smoking Status: Never smoker second hand exposure: No alcohol intake: current substance use type: does not use Smoking Status: Never smoker alcohol intake frequency: 3 or more drinks per day Substance Use Type: does not use Exam Narrative Exam Narrative: GEN: AOx3 and in mild distress EYES: Pupils are equal, round, and reactive to light and accommodation. Extraoccular muscles are intact bilaterally. There is no subconjunctival hemorrhage or exudate. CHEST: Lungs are clear to auscultation bilaterally and free of wheezes, rales, or rhonchi. Heart rate is regular rhythm, there are no murmurs, clicks, rubs, or gallops. There is no chest wall tenderness. ABD: Abdomen is soft and nontender. There is no guarding or rebound. Bowel soun ds are normal in all 4 quadrants. There is no mass or organomegaly. EXT: Full but painful range of motion of the right ankle with tenderness overlying the lateral malleolus and inferior, in the distribution of the anterior talofibular ligament. No obvious ligamentous instability, this is closed, isolated neurovascularly intact. No pain with squeeze test. No pain on examination knee, particularly along the proximal fibula. SKIN: Warm, pink, and dry. No erythema or rash Initial Vital Signs Initial Vital Signs: Vital Signs Temperature 98.4 F 07/07/23 13:35 Pulse Rate 100 H 07/07/23 13:35 Respiratory Rate 18 07/07/23 13:35 Blood Pressure 153/102 H 07/07/23 13:35 Pulse Oximetry 100 07/07/23 13:35 Oxygen Delivery Method Room Air 07/07/23 13:35 Course Orders Ordered: ED Orders 07/07/23 13:38 XR ankle RT min 3V Stat XR foot RT min 3V Stat Vital Signs Vital signs: Vital Signs - 8 hr 07/07/23 13:35 Temperature 98.4 F Pulse Rate 100 H Respiratory Rate 18 Blood Pressure 153/102 H Pulse Oximetry 100 Oxygen Delivery Method Room Air MDM - Extremity Injury (Lower) MDM Narrative Medical decision making narrative: [53] year old patient presents with R ankle pain Multiple etiologies for patient's symptoms considered including, but not limited to: [Fracture versus dislocation versus ligamentous injury versus syndesmotic injury versus other] Prior Charts reviewed in our EMR Primary Historian: patient Imaging reviewed: No obvious fracture or dislocation on for or ankle x-ray Patient's symptoms improved over duration of stay with above-stated therapies. Findings and discharge diagnosis discussed with patient/family followed by verbalization of understanding Return precautions discussed with patient/family whom verbalize understanding of diagnosis and plan Discharge Plan Departure Patient Disposition: Home Clinical Impression: Injury of ankle, right Instructions: DI for Ankle Sprain Activity Restrictions/Additional Instructions: *You have been diagnosed with [right ankle injury, thankfully x-ray showed no evidence of fracture or dislocation] *What to do: *Please continue to take your regular medications as directed. [ ] New medication prescriptions sent to your pharmacy: [ ] [ ] New medication written as a paper prescription [ ] No new medications given *Please follow up with your primary care provider in 2-3 days, call for an appointment. Let them know you were seen in the Emergency Department and that we ask that you be seen in follow up. We will electronically transmit a record of today's note if your PCP is in our system *Return to Emergency Department if you should have any new, worsening or concerning symptoms, such as [fever greater than 101 F, shaking chills, worsening pain, persistent vomiting or other bothersome symptoms] Prescriptions: No Action Calcium Gummies See Rx Instructions .ROUTE .COMPLEX Patient Comments: 2 gummies PO QDAY Rx Instructions: 2 gummies PO QDAY multivitamin [Multiple Vitamins] 1 EACH tablet 1 tab PO QDAY Qty: 0 progesterone micronized 100 mg capsule 100 mg PO QAM Qty: 30 3RF losartan 25 mg tablet 25 mg PO DAILY Qty: 90 3RF pravastatin 20 mg tablet 20 mg PO DAILY Qty: 90 3RF chlorthalidone 25 mg tablet 25 mg PO DAILY Qty: 30 1RF estradiol [Vagifem] 10 mcg tablet 10 mcg vaginal 2XW Qty: 24 1RF omeprazole 20 mg capsule,delayed release(DR/EC) 20 mg PO DAILY Referrals: Thien Maier DO [Primary Care Provider] - Stand Alone Forms: Patient Portal/API
[2023-07-07 16:07] VITALS: BP 165/100; PULSE 92; RESP 16; O2SAT 99
== END 2023-07-07 16:07 | disposition home or self-care (01) ==
PROVIDERS: Emergency Provider Emergency Medicine; PCP Family Medicine
DX: S99.911A Unspecified injury of right ankle, initial encounter (principal); W10.9XXA Fall (on) (from) unspecified stairs and steps, initial encounter
CPT/HCPCS: 73610; 73630; 99282; 99283

== ENCOUNTER → 2023-07-20 10:26 | Outpatient (CLI) | payer OTHER, SELFPAY ==
[2023-07-20 11:59] LABS: BUN Creatinine Ratio 12.5 (6-22); Blood Urea Nitrogen 12 mg/dL (7-17); Calcium 9.2 mg/dL (8.4-10.2); Carbon Dioxide 29 mmol/L (22-32); Chloride 99 mmol/L (98-107); Estimated Glomerular Filt Rate > 60 mL/min (>60); Glucose 96 mg/dL (70-100); HEMOLYSIS < 15 (0-50); Potassium 3.1 mmol/L (3.4-5.1); Sodium 136 mmol/L (137-145)
== END ==
LOC: LAB 10:26
PROVIDERS: PCP Family Medicine; Referring Provider Physician Assistant; Visit Provider Physician Assistant
DX: I10 Essential (primary) hypertension (principal)
CPT/HCPCS: 36415; 80048

== ENCOUNTER → 2023-07-25 07:42 | Outpatient (CLI) | payer OTHER, SELFPAY ==
--- NOTE | 2023-07-25 07:43 | DI.US.S_ITS ---
PROCEDURE: US PELVIC COMPLETE INDICATIONS: Irregular menstrual bleeding TECHNIQUE: Real-time scanning was performed of the pelvic organs, with image documentation. Additional endovaginal scanning was necessary due to incomplete visualization of the adnexal and endometrial structures by transabdominal scanning. COMPARISON: [facility], CT, CT KIDNEY URETER BLADDER (KUB), 05/06/2022, 10:37. FINDINGS: Uterus: Uterus is anteverted and normal in size at 9.6 x 5.3 x 4 cm. The myometrium is heterogeneous. Right anterior intramural fibroid measuring 1 cm. The endometrium measures 4 mm combined thickness. Small nabothian cysts. Ovaries: The right ovary measures 3.8 x 1.7 x 1.4 cm, with a calculated ovarian volume of 5 cc. The left ovary measures 1.7 x 1.6 x 1.4 cm, with a calculated ovarian volume of 2 cc. The ovaries have a normal sonographic appearance. Less than 12 follicles can be seen in each ovary. No adnexal masses are seen. Simple cyst on the right ovary measuring 2.1 x 1.8 x 1.6 cm. Other: No pathologic free abdominal or pelvic fluid. IMPRESSION: 1. Endometrium measures 4 mm. 2. Intramural fibroid measuring 1 cm. 3. No significant ovarian cysts. We strive to produce accurate, complete, and clear reports of imaging services. To assist us in improving patient care, this report was composed using standard report templates and voice recognition software. Therefore, it may contain abnormal punctuation, insertions and/or omissions. Occasional wrong-word or sound-alike substitutions may occur. Though we review the report and make efforts to correct it, we do recommend that the report be read carefully in proper context to recognize any text inaccuracies. Dictated by: Panfilo Lowe M.D. on 07/25/2023 at 17:31 Approved by: Panfilo Lowe M.D. on 07/25/2023 at 17:34
== END ==
LOC: US 07:43
PROVIDERS: PCP Family Medicine; Referring Provider Physician Assistant; Visit Provider Physician Assistant
DX: N92.6 Irregular menstruation, unspecified (principal); D25.1 Intramural leiomyoma of uterus; N83.291 Other ovarian cyst, right side; N88.8 Other specified noninflammatory disorders of cervix uteri
CPT/HCPCS: 76856

== ENCOUNTER → 2023-09-24 06:43 | Outpatient (CLI) | payer OTHER, SELFPAY ==
[2023-09-24 08:15] LABS: Cholesterol 255 mg/dL (140-199); HDL Cholesterol 69 mg/dL (40-60); LDL Cholesterol Calculated 143 mg/dL (<100); Triglycerides 217 mg/dL (35-150)
== END ==
PROVIDERS: PCP Family Medicine; Referring Provider Family Medicine; Visit Provider Family Medicine
DX: E78.2 Mixed hyperlipidemia (principal)
CPT/HCPCS: 36415; 80061

== ENCOUNTER 2023-11-16 12:36 | Day surgery (SDC) | payer OTHER, SELFPAY ==
--- NOTE | 2023-11-16 | PATH_ITS ---
[facility] Accession Number: [id number] No. of containers..01 Tissue . 01 Material submitted: . esophagus, E-G Junction - GE JUNCTION . 01 Diagnosis: GE JUNCTION: Gastroesophageal junction mucosa with mild chronic inflammation. No goblet cell metaplasia, dysplasia, or malignancy identified. [facility] 11/20/2023 1225 Local . 01 Electronically signed: . Tano Worthington MD, Pathologist NPI- [id number] . 01 Gross description: . Received in formalin with two patient identifiers and GE junction, are two ochoa to brown soft tissue fragments, both measuring 0.4 cm in greatest dimension, submitted in A1. ([id number]) /MRV 11/20/2023 1225 Local . 01 Pathologist provided ICD-10: K20.90 . 01 CPT . 127761 Specimen Comment: A courtesy copy of this report has been sent to [phone] Performed at: [address] [facility] [address], [place], [place] [id number] MD Tano Worthington MD Phone: [phone]
[2023-11-16 13:15] VITALS: BP 147/87; PULSE 78; RESP 16; TEMP 36.6; O2SAT 98
[2023-11-16] MEDS: LACTATED RINGERS 1,000 ML 150 ML IV (13:20)
--- NOTE | 2023-11-16 13:51 | PM.PREOP ---
Pre-operative Note Interval Note History & Physical reviewed/Exam performed by Physician: Yes Changes to H&P: No
[2023-11-16 14:07] VITALS: BP 101/81; PULSE 86; RESP 16; TEMP 36.4; O2SAT 100
--- NOTE | 2023-11-16 14:09 | PM.OP.EGD ---
Operative Date/Time/Diagnoses Date of procedure: 11/16/23 Time of procedure: 14:10 Pre-op diagnosis: GERD Procedure & Clinicians Study performed: Esophagogastroduodenoscopy Same procedure as scheduled: Yes Indications: Refractory GERD Surgeon: Jeffry Woodruff Procedure Notes Procedure in detail: The history and physical was performed/updated and the patient is ASA class is 2. The procedure was discussed in detail with the patient. Potential risks complications including infection, bleeding, missed diagnosis, perforation, need for surgery, and were explained. Their questions were answered and informed consent was obtained. Patient placed in left lateral decubitus position. Time out was performed. Procedural sedation was administered by Anesthesia. A bite block was placed. the scope was inserted into the mouth and advanced through the esophagus and into the stomach. The pylorus was intubated and the duodenum was examined to the 2nd portion. The scope was then withdrawn into the stomach and was retroflexed. The GE junction was biopsied with forceps. The stomach was decompressed and scope was withdrawn slowly through the esophagus. FINDINGS -Hill grade 1 hiatal hernia -No mario Herron's esophagus The patient tolerated the procedure well and will be discharged when they meet criteria. Specimen(s): other (GE junction) Impression: Hiatal hernia Post-procedure Recommendations: Reflux diet Plan for aftercare: Omeprazole 20mg once to twice day Disposition: same day surgery
[2023-11-16 14:12] VITALS: BP 121/86; PULSE 83; RESP 14; O2SAT 96
[2023-11-16 14:18] VITALS: BP 118/87; PULSE 78; RESP 12; TEMP 36.6; O2SAT 97
[2023-11-16 14:21] VITALS: BP 121/86; PULSE 70; RESP 12; O2SAT 98
== END 2023-11-16 14:38 | disposition home or self-care (01) ==
PROVIDERS: PCP Family Medicine; Referring Provider Surgery; Visit Provider Surgery
PROC: 0DJ08ZZ Inspection of Upper Intestinal Tract, Via Natural or Artificial Opening Endoscopic (ICD-10-PCS; CPT 43235; principal; 2023-11-16 14:00)
DX: K21.00 Gastro-esophageal reflux disease with esophagitis, without bleeding (principal); K44.9 Diaphragmatic hernia without obstruction or gangrene
CPT/HCPCS: 43239; J2704

== ENCOUNTER → 2024-02-28 07:00 | Outpatient (CLI) | payer OTHER, SELFPAY ==
[2024-02-28 08:52] LABS: Cholesterol 255 mg/dL (140-199); HDL Cholesterol 85 mg/dL (40-60); LDL Cholesterol Calculated 139 mg/dL (<100); Triglycerides 157 mg/dL (35-150)
== END ==
PROVIDERS: PCP Family Medicine; Referring Provider Family Medicine; Visit Provider Family Medicine
DX: E78.2 Mixed hyperlipidemia (principal)
CPT/HCPCS: 36415; 80061

== ENCOUNTER → 2024-06-06 15:29 | Outpatient (CLI) | payer OTHER, SELFPAY ==
--- NOTE | 2024-06-06 15:31 | DI.MG.S_ITS ---
MM screening mammo BI: 06/06/2024. BI-RADS: 1 CLINICAL: 54-year old female for bilateral screening mammogram. Tyrer-Cuzick lifetime risk of 11.5%. No personal or first-degree family history of breast cancer. The patient reports testing negative for BRCA gene mutation. PRIOR EXAMS 05/15/2023, 04/24/2022, 03/28/2021, 03/26/2020, 09/11/2019, 02/20/2019, 01/29/2019, 01/11/2018. MAMMOGRAPHY TECHNIQUE: 2D and 3D (tomosynthesis) digital mammographic views obtained, with additional images as needed for full coverage. Current study was also evaluated with a Computer Aided Detection (CAD) system. DENSITY C. The breasts are heterogeneously dense, which may obscure small masses. MAMMOGRAPHY FINDINGS Bilateral: No suspicious mass, asymmetry, microcalcification, or other abnormality seen. IMPRESSION: * No evidence of malignancy. RECOMMENDATIONS Bilateral * Annual screening mammography. OVERALL ASSESSMENT CATEGORY BI-RADS-1: Negative. The [employer] recommends annual screening mammography beginning at age 40 for women with average risk of breast cancer. ELECTRONICALLY SIGNED: Gregory Pritchard M.D. on 06/06/2024 at 07:52:18 PM PT Interpreting Station ID: [id number]
== END ==
PROVIDERS: PCP Family Medicine; Referring Provider Family Medicine; Visit Provider Family Medicine
DX: Z12.31 Encounter for screening mammogram for malignant neoplasm of breast (principal); R92.333 Mammographic heterogeneous density, bilateral breasts
CPT/HCPCS: 77063; 77067

== ENCOUNTER → 2024-11-04 07:07 | Outpatient (CLI) | payer OTHER, SELFPAY ==
[2024-11-04 07:40] LABS: Add Manual Diff / Slide Review NO; Hematocrit 37.2 % (36-46); Hemoglobin 13.0 g/dL (12.0-16.0); Lymphocytes Absolute Auto 1900 /uL (1100-4500); Mean Corpuscular HGB Conc 34.9 % (30-36); Mean Corpuscular Hemoglobin 31.1 PG (26-34); Mean Corpuscular Volume 89.3 fL (80-100); Platelet Count 474 X10^3/uL (150-400)
[2024-11-04 08:02] LABS: Alanine Aminotransferase 27 IU/L (<35); Albumin 4.5 g/dL (3.5-5.0); Albumin Globulin Ratio 1.6 (1.0-2.8); Alkaline Phosphatase 67 U/L (38-126); Blood Urea Nitrogen 17 mg/dL (7-17); Calcium 9.4 mg/dL (8.4-10.2); Carbon Dioxide 27 mmol/L (22-32); Chloride 102 mmol/L (98-107); Cholesterol 178 mg/dL (140-199); Estimated Glomerular Filt Rate > 60 mL/min (>60); Globulin 2.9 g/dL (1.7-4.1); Glucose 102 mg/dL (70-99); HDL Cholesterol 59 mg/dL (40-60); HEMOLYSIS < 15 (0-50); Potassium 3.3 mmol/L (3.4-5.1); Sodium 139 mmol/L (137-145); Total Protein 7.4 g/dL (6.3-8.2); Triglycerides 160 mg/dL (35-150)
== END ==
PROVIDERS: PCP Family Medicine; Referring Provider Family Medicine; Visit Provider Family Medicine
DX: I10 Essential (primary) hypertension (principal); E78.2 Mixed hyperlipidemia
CPT/HCPCS: 36415; 80053; 80061; 85025

== ENCOUNTER → 2024-12-04 07:21 | Outpatient (CLI) | payer OTHER, SELFPAY ==
--- NOTE | 2024-12-04 07:23 | DI.US.S_ITS ---
PROCEDURE: US PELVIC COMPLETE INDICATIONS: postmenopausal bleeding TECHNIQUE: Real-time scanning was performed of the pelvic organs, with image documentation. Additional endovaginal scanning was necessary due to incomplete visualization of the adnexal and endometrial structures by transabdominal scanning. COMPARISON: [facility], , US PELVIC COMPLETE, 07/25/2023, 7:59. FINDINGS: Uterus: Uterus is anteverted and normal in size at 7.1 x 3.8 x 4.0 cm. The myometrium is heterogeneous without dominant mass. The endometrium is not well seen by transvaginal imaging due to shadowing heterogeneity. What is measured as the endometrium is five mm combined thickness. Normal vascularity in the uterus. The cervix appears normal. Several nabothian cysts are noted. Ovaries: The right ovary measures 1.9 x 0.9 x 1.2 cm, with a calculated ovarian volume of 1.9 cc. The left ovary measures 1.8 x 1.0 x 1.5 cm, with a calculated ovarian volume of 2.2 cc. The ovaries have a normal sonographic appearance. Less than 12 follicles can be seen in each ovary. No adnexal masses are seen. Other: No pathologic free abdominal or pelvic fluid. IMPRESSION: Heterogeneous myometrial echotexture with poor definition of the endometrial stripe. The uterus and endometrium by transabdominal imaging appears normal. The endometrium is borderline pathologic in thickness and 2-3 month follow-up is recommended for reassessment. We strive to produce accurate, complete, and clear reports of imaging services. To assist us in improving patient care, this report was composed using standard report templates and voice recognition software. Therefore, it may contain abnormal punctuation, insertions and/or omissions. Occasional wrong-word or sound-alike substitutions may occur. Though we review the report and make efforts to correct it, we do recommend that the report be read carefully in proper context to recognize any text inaccuracies. Dictated by: Elizabeth Slater M.D. on 12/04/2024 at 19:29 Approved by: Elizabeth Slater M.D. on 12/04/2024 at 19:35
== END ==
LOC: US 07:22
PROVIDERS: PCP Family Medicine; Referring Provider Family Medicine; Visit Provider Obstetrics & Gynecology
DX: N95.0 Postmenopausal bleeding (principal); N88.8 Other specified noninflammatory disorders of cervix uteri
CPT/HCPCS: 76830; 76856